=== PATIENT | male | born 1970 | race Caucasian/White ===

== ENCOUNTER 2019-01-26 22:14 | Emergency (ER) | payer SELFPAY ==
[2019-01-26 22:23] VITALS: TEMP 97.8; BMI 24.1
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
[2019-01-26] MEDS ORDERED: FOLIC ACID INJECTION - 1 MG, THIAMINE HCL 100 MG, MULTIVIT INJECTION ADULT 10 ML in SOD... IVPB ONE (22:33)
[2019-01-26] MEDS ORDERED: DIPHTH,PERTUSS(ACELL),TET 0.5 ML DISP.SYRIN IM ONE ×2 (22:33→22:41)
[2019-01-26 23:40] LABS: BASO % 0.7 % (0-2.0); EOS % 0.3 % (0-4.5); HEMATOCRIT 39.4 % (35.4-49); HEMOGLOBIN 13.2 GM/dL (11.7-16.9); LYMPH % 14.8 % (8-40); MCH 31.8 pg (25.7-33.7); MCHC 33.4 g/dl (32.0-35.9); MEAN PLT VOLUME 6.8 fl (7.5-11.1); MONO % 6.9 % (3.8-10.2); NEUT % 77.3 % (42.8-82.8); PLATELET COUNT 296 K/MM3 (134-434); RBC 4.15 M/mm3 (4.00-5.60); RDW 13.8 % (11.9-15.9); WHITE BLOOD COUNT 15.7 K/mm3 (4.0-10.0)
[2019-01-26 23:44] LABS: EPI CELLS 0.4 /HPF (0-5/HPF); HYALINE CASTS 6 /lpf (0-8); URINE APPEARANCE CLEAR; URINE BACTERIA 1.5 /hpf (NEGATIVE); URINE BILIRUBIN NEGATIVE (NEGATIVE); URINE COLOR YELLOW; URINE GLUCOSE (UA) NEGATIVE (NEGATIVE); URINE KETONE NEGATIVE (NEGATIVE); URINE LEUK ESTERASE NEGATIVE (NEGATIVE); URINE NITRITE NEGATIVE (NEGATIVE); URINE PROTEIN TRACE (NEGATIVE); URINE RBC 16 /hpf (0-4); URINE UROBILINOGEN 0.2 mg/dL (0.2-1.0); URINE WBC 1 /hpf (0-5)
[2019-01-26 23:48] LABS: INR 0.98 (0.83-1.09); PROTHROMBIN TIME (PATIENT) 11.6 SEC (9.7-13.0)
[2019-01-26] MEDS ORDERED: morphine CARPU-JECT 2 MG/1 ML DISP.SYRIN IVPUSH ONE (23:59)
[2019-01-27] MEDS ORDERED: MORPHINE SULFATE 2 MG/ML VIAL ONE (00:03)
[2019-01-27 00:04] LABS: BILIRUBIN,TOTAL 0.3 mg/dL (0.2-1); BLOOD UREA NITROGEN 8.1 mg/dL (7-18); CALCIUM 8.4 mg/dL (8.5-10.1); POTASSIUM 3.5 mmol/L (3.5-5.1); TOT PROT 7.7 g/dl (6.4-8.2)
[2019-01-27] MEDS ORDERED: BACITRACIN 0.9 GM PACKET ONE (00:46)
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
[2019-01-27 04:00] VITALS: BP 126/76; PULSE 80
== END 2019-01-27 03:59 | disposition home or self-care (01) ==
LOC: JER 22:14
PROC: 3E0234Z Introduction of Serum, Toxoid and Vaccine into Muscle, Percutaneous Approach (ICD-10-PCS; principal; 2019-01-26)
DX: S52.531A Colles' fracture of right radius, initial encounter for closed fracture (principal); T14.8XXA Other injury of unspecified body region, initial encounter; Y04.2XXA Assault by strike against or bumped into by another person, initial encounter; Y93.89 Activity, other specified; Y92.89 Other specified places as the place of occurrence of the external cause
CPT/HCPCS: 36415; 71046-TC-FY; 72170-TC-FY; 73070-TC-RT-FY; 73090-TC-RT-FY; 73110-TC-RT-FY; 73130-TC-RT-FY; 74177-TC; 80053; 81003; 85025; 85610; 86850; 86900; 86901; 90715; 99284-25; J7030

== ENCOUNTER 2019-01-31 08:13 | Emergency (ER) | payer OTHER ==
[2019-01-31 08:21] VITALS: BP 119/76; PULSE 82; TEMP 97.7; BMI 17.9
--- NOTE | 2019-01-31 08:40 | PDOC ---
History of Present Illness - General Chief Complaint: Revisit,Wound Recheck Stated Complaint: RT WRIST INJURY Time Seen by Provider: 01/31/19 08:21 History Source: Patient (pt is here for another ortho referral) Exam Limitations: No Limitations Past History - Travel Traveled outside of the country in the last 30 days: No Close contact w/someone who was outside of country & ill: No - Past Medical History Allergies/Adverse Reactions: Allergies Allergy/AdvReac Type Severity Reaction Status Date / Time No Known Allergies Allergy Verified 01/26/19 22:20 Home Medications: Ambulatory Orders Oxycodone HCl/Acetaminophen [Percocet 5/325 -] 1 tab PO Q6H #20 tablet MDD 4 COPD: No - Surgical History Cardiac Surgery: No Cholecystectomy: No - Immunization History Td Vaccination: Yes TDAP Vaccination: Yes Immunization Up to Date: Yes - Suicide/Smoking/Psychosocial Hx Smoking History: Never smoked Have you smoked in the past 12 months: No Information on smoking cessation initiated: No Hx Alcohol Use: No Drug/Substance Use Hx: No Review of Systems - Review of Systems Constitutional: No: Chills, Fever Musculoskeletal: Yes: Joint Pain. No: Back Pain, Joint Swelling, Muscle Pain, Muscle Weakness, Neck Pain, Joint Stiffness *Physical Exam - Vital Signs Last Vital Signs Temp Pulse Resp BP Pulse Ox 97.7 F 82 16 119/76 98 01/31/19 08:18 01/31/19 08:18 01/31/19 08:18 01/31/19 08:18 01/31/19 08:18 - Physical Exam General Appearance: Yes: Nourished Extremity: positive: Normal Capillary Refill, Other (splint in R forearm) Neurologic: positive: flotation tender helper II-XII NML intact, Fully Oriented, Alert, Normal Mood/ Affect, Normal Response, Motor Strength 5/5 Medical Decision Making - Medical Decision Making Pt is here for another ortho referral as his insurance was not accepted where he as referred seen 01/27/19 for colles fx 01/31/19 08:50 2 ortho referral given pt will f/u *DC/Admit/Observation/Transfer Diagnosis at time of Disposition: Colles' fracture Qualifiers: Encounter type: initial encounter Fracture type: closed Laterality: right Qualified Code(s): S52.531A - Colles' fracture of right radius, initial encounter for closed fracture - Discharge Dispostion Disposition: HOME Condition at time of disposition: Stable - Referrals Referrals: Fang Alvarado MD [Non Staff, Medical] - Diaz Ambrose MD [Staff Physician] - - Patient Instructions Additional Instructions: Please follow up orthopedics Return to the ER if worsening symptoms occurs - Post Discharge Activity
== END 2019-01-31 08:53 | disposition home or self-care (01) ==
LOC: JERFT 08:13
DX: Z04.89 Encounter for examination and observation for other specified reasons (principal); S52.531D Colles' fracture of right radius, subsequent encounter for closed fracture with routine healing; X58.XXXD Exposure to other specified factors, subsequent encounter
CPT/HCPCS: 99282-25

== ENCOUNTER 2019-02-04 09:40 | Emergency (ER) | payer OTHER ==
[2019-02-04 09:49] VITALS: BP 123/79; PULSE 86; TEMP 98.7; BMI 17.9
--- NOTE | 2019-02-04 10:05 | PDOC ---
History of Present Illness - General Chief Complaint: Revisit,Wound Recheck Stated Complaint: REVISIT Time Seen by Provider: 02/04/19 09:52 History Source: Patient Exam Limitations: No Limitations (R wrist fx 01/26/19, here for ortho referral) Past History - Travel Traveled outside of the country in the last 30 days: No Close contact w/someone who was outside of country & ill: No - Past Medical History Allergies/Adverse Reactions: Allergies Allergy/AdvReac Type Severity Reaction Status Date / Time No Known Allergies Allergy Verified 01/26/19 22:20 Home Medications: Ambulatory Orders Oxycodone HCl/Acetaminophen [Percocet 5/325 -] 1 tab PO Q6H #20 tablet MDD 4 COPD: No - Surgical History Cardiac Surgery: No Cholecystectomy: No - Immunization History Td Vaccination: Yes TDAP Vaccination: Yes Immunization Up to Date: Yes - Suicide/Smoking/Psychosocial Hx Smoking History: Never smoked Have you smoked in the past 12 months: No Information on smoking cessation initiated: No Hx Alcohol Use: No Drug/Substance Use Hx: No Review of Systems - Review of Systems Constitutional: No: Chills, Fever Musculoskeletal: No: Joint Pain, Joint Swelling, Muscle Pain, Joint Stiffness *Physical Exam - Vital Signs Last Vital Signs Temp Pulse Resp BP Pulse Ox 98.7 F 86 16 123/79 100 02/04/19 09:47 02/04/19 09:47 02/04/19 09:47 02/04/19 09:47 02/04/19 09:47 - Physical Exam General Appearance: Yes: Nourished Extremity: positive: Other (splint in right forearm, able to move fingers, no discoloration, sensation intact) Neurologic: positive: hand hardener II-XII NML intact, Fully Oriented, Alert, Normal Mood/ Affect, Normal Response, Motor Strength 5/5 Medical Decision Making - Medical Decision Making 49y/o M s/p colles fx on 01/26/19, splinted. Here for ortho f/u Pt has Emergent Medicare, he is having issues following up with all the orthopedic contact numbers that was provided to him SW contacted, I spoke with Ms. Antony who will come see pt and also get finance involved SW assessed pt, pt does have Emergency Medicare only. Post reduction film sent, ortho called as pt cannot see any orthopedic at this time due to insurance status I spoke with SHIVAM York--who works with Dr. Ambrose. He reviewed the film today, reports splint can stay up to 6wks, pt may return to the ER in another 5 wks for splint removal or pt is welcome to make appointment with orthopedic as self pay if he is willing The above discussed with pt. DORA John translated the entire visit 02/04/19 12:00 02/04/19 12:35 *DC/Admit/Observation/Transfer Diagnosis at time of Disposition: Colles' fracture Qualifiers: Encounter type: subsequent encounter Fracture type: closed Laterality: right Fracture healing: with routine healing Qualified Code(s): S52.531D - Colles' fracture of right radius, subsequent encounter for closed fracture with routine healing - Discharge Dispostion Disposition: HOME Condition at time of disposition: Stable - Referrals Referrals: Diaz Ambrose MD [Staff Physician] - - Patient Instructions Additional Instructions: You may return back to the ER in 5 weeks for a splint removal You can also follow up with Orthopedics Clinic for follow up, please call to make appointment You may return to the ER if worsening symptoms occurs - Post Discharge Activity
== END 2019-02-04 12:14 | disposition home or self-care (01) ==
LOC: JERFT 09:40
DX: S52.531D Colles' fracture of right radius, subsequent encounter for closed fracture with routine healing (principal); Y04.2XXD Assault by strike against or bumped into by another person, subsequent encounter
CPT/HCPCS: 73110-TC-RT-FY; 99281-25

== ENCOUNTER 2019-02-20 10:20 | Emergency (ER) | payer OTHER ==
[2019-02-20 10:26] VITALS: BP 113/73; PULSE 69; TEMP 97.9; BMI 17.9
--- NOTE | 2019-02-20 10:47 | PDOC ---
History of Present Illness - General Chief Complaint: Pain Stated Complaint: REVISIT Time Seen by Provider: 02/20/19 10:43 History Source: Patient Exam Limitations: No Limitations - History of Present Illness Initial Comments: 02/20/19 10:43 49 year old male with no significant medical or surgical history presents with request to have arm rechecked. Patient s/p visit for injury to right arm, diagnosed with colles fx of wrist 01/31/19. Third visit to emergency room for the same, given referral states he did not go to appointment because his insurance is not accepted. Patient reports pain is relieved by ibuprofen. Reports no new injuries. 02/20/19 10:48 Timing/Duration: unsure Severity: mild Modifying Factors: improves with: immobilization Associated Symptoms: reports: denies symptoms Aspirin Received prior to arrival: Yes: no aspirin today Asa Contraindications(Core Measure): No: Allergy Beta Rafaela Contraindications(Core Measure): Yes: Not Prescribed Beta Rafaela Given by EMS(Core Measure): No Beta Rafaela Taken at Home(Core Measure): No Beta Rafaela Not Indicated at this Time(Core Measure): No Past History - Travel Traveled outside of the country in the last 30 days: No Close contact w/someone who was outside of country & ill: No - Past Medical History Allergies/Adverse Reactions: Allergies Allergy/AdvReac Type Severity Reaction Status Date / Time No Known Allergies Allergy Verified 02/20/19 10:43 Home Medications: Ambulatory Orders NK [No Known Home Medication] 02/20/19 COPD: No - Surgical History Cardiac Surgery: No Cholecystectomy: No - Immunization History Td Vaccination: Yes TDAP Vaccination: Yes Immunization Up to Date: Yes - Suicide/Smoking/Psychosocial Hx Smoking History: Current every day smoker Have you smoked in the past 12 months: No Number of Cigarettes Smoked Daily: 3 Information on smoking cessation initiated: Yes Hx Alcohol Use: No Drug/Substance Use Hx: No Review of Systems - Review of Systems Able to Perform ROS?: Yes Is the patient limited French proficient: No Constitutional: No: Chills, Fever, Weakness HEENTM: No: Throat Pain, Throat Swelling, Mouth Swelling Respiratory: No: Shortness of Breath, Wheezing Cardiac (ROS): No: Edema, Palpitations *Physical Exam - Vital Signs Last Vital Signs Temp Pulse Resp BP Pulse Ox 97.9 F 69 18 113/73 100 02/20/19 10:23 02/20/19 10:23 02/20/19 10:23 02/20/19 10:23 02/20/19 10:23 - Physical Exam General Appearance: Yes: Nourished, Appropriately Dressed HEENT: positive: TMs Normal, Pharynx Normal Neck: positive: Supple. negative: Lymphadenopathy (R), Lymphadenopathy (L) Respiratory/Chest: positive: Lungs Clear, Normal Breath Sounds Cardiovascular: positive: Regular Rhythm, Regular Rate Extremity: positive: Other (neurovascular intact.). negative: Pedal Edema, Swelling, Calf Tenderness, Erythema, Inflammation Integumentary: positive: Normal Color Neurologic: positive: Fully Oriented Medical Decision Making - Medical Decision Making 02/20/19 10:53 49 year old male with no significant medical or surgical history presents with request to have arm rechecked. Plan: in french instruct patient on the importance of follow up with orthopedic and since there was no new injury, there was no need for a new xray. Re assurance given an new sling placed , ensure patient had medication for pain relief. States understanding continues to espress his fear of no coverage at ortho clinic. Instructed patient to call clinic for appointment and to follow up with pmd for further assistance with referral as needed. *DC/Admit/Observation/Transfer Diagnosis at time of Disposition: Right wrist injury Qualifiers: Encounter type: subsequent encounter Qualified Code(s): S69.91XD - Unspecified injury of right wrist, hand and finger(s), subsequent encounter - Discharge Dispostion Disposition: HOME Condition at time of disposition: Good - Referrals - Patient Instructions Printed Discharge Instructions: How to Use a Sling Additional Instructions: Please keep splint in place Call [phone] for appointment -por fercho winkler [phone] por pa ken con [employer] - Post Discharge Activity Forms/Work/School Notes: Back to Work
== END 2019-02-20 10:52 | disposition home or self-care (01) ==
LOC: JERFT 10:20
DX: S69.91XD Unspecified injury of right wrist, hand and finger(s), subsequent encounter (principal); X58.XXXD Exposure to other specified factors, subsequent encounter; Y93.9 Activity, unspecified; F17.210 Nicotine dependence, cigarettes, uncomplicated
CPT/HCPCS: 99282-25